=== PATIENT | male | born 1965 | race Caucasian/White ===

== ENCOUNTER 2021-07-18 11:18 | Emergency (ER) | payer BC ==
[~2021-07-18] VITALS: Ht 177.8 cm; Wt 94.3 kg
== END 2021-07-18 12:56 | disposition home or self-care (01) ==
LOC: ER 11:24
DX: R33.9 Retention of urine, unspecified (principal); R31.9 Hematuria, unspecified
CPT/HCPCS: 51700; 99283

== ENCOUNTER → 2024-06-12 | Outpatient (REF) | payer BC ==
[~2024-06-12] MED LIST: IOPAMIDOL 370 MG/ML 100 ML INFUS..BTL INJ ONE; SODIUM CHLORIDE 0.9% 250ML 250 ML ONE
== END ==
LOC: CT 11:49
PROVIDERS: ATTEND Urology
DX: R31.21 Asymptomatic microscopic hematuria (principal)
CPT/HCPCS: 36415; 74178; 82565; 84520; J7050; Q9967

== ENCOUNTER → 2024-07-22 | Day surgery (SDC) | payer BC, OTHER ==
[~2024-07-22] MED LIST changes: +CEFTRIAXONE 1 GM VIAL ONE; +CENTRUM MEN 501 EACH; +FINASTERIDE5 MG PO; +FLOMAX0.4 MG PO; +HYDRALAZINE HCL 20 MG/ML VIAL ONE; -IOPAMIDOL 370 MG/ML 100 ML INFUS..BTL INJ ONE; +MONTELUKAST SOD10 MG PO; +PHENAZOPYRIDINE HCL 100 MG TAB ONE; +RIZATRIPTAN10 M1 PO; -SODIUM CHLORIDE 0.9% 250ML 250 ML ONE; +ZYRTEC10 MG PO
[2024-07-22] MEDS: LACTATED RINGER'S 1,000 ML ONE (09:18)
[2024-07-22 09:23] LABS: BASOPHILS # (AUTO) 0.1 (0.0-0.1); BASOPHILS % 0.4 % (0.0-1.0); EOSINOPHILS # (AUTO) 0.2 (0.0-0.4); HEMATOCRIT 44.2 % (38.2-49.6); HEMOGLOBIN 14.5 g/dL (14.0-18.0); LYMPHOCYTES # (AUTO) 1.8 (1.0-3.2); LYMPHOCYTES % 14.9 % (18.0-39.1); MEAN CORPUSCULAR HEMOGLOBIN 32.3 pg (28-32); MEAN CORPUSCULAR HGB CONC 32.8 g/dL (31-35); MEAN CORPUSCULAR VOLUME 98.4 fL (81-99); MONOCYTES % 8.3 % (4.4-11.3); NEUTROPHILS # (AUTO) 8.9 (2.1-6.9); NEUTROPHILS % 74.1 % (38.7-80.0); PLATELET COUNT 252 x10e3/uL (140-360); RED BLOOD COUNT 4.49 x10e6/uL (4.3-5.7); RED CELL DISTRIBUTION WIDTH 13.2 % (11.7-14.4); WHITE BLOOD COUNT 12.03 x10e3/uL (4.8-10.8)
[2024-07-22 09:54] LABS: ANION GAP 15.8 mmol/L (8-16); CALCIUM 8.9 mg/dL (8.4-10.2); CREATININE, SERUM 1.14 mg/dL (0.72-1.25); POTASSIUM 3.8 mmol/L (3.5-5.1)
[2024-07-22 12:55] VITALS: TEMP 97
[2024-07-22] MEDS: PHENAZOPYRIDINE HCL 100 MG TAB PO ONE ×2 (13:49)
[2024-07-22 14:05] VITALS: BP 138/99; PULSE 76; RESP 18; O2SAT 100
== END | disposition home or self-care (01) ==
LOC: OR 07:20
PROVIDERS: ATTEND Urology
DX: N32.3 Diverticulum of bladder (principal); R31.29 Other microscopic hematuria; N35.911 Unspecified urethral stricture, male, meatal; N40.3 Nodular prostate with lower urinary tract symptoms; R31.0 Gross hematuria; R39.14 Feeling of incomplete bladder emptying; N32.89 Other specified disorders of bladder; I10 Essential (primary) hypertension; Z87.891 Personal history of nicotine dependence; Z01.810 Encounter for preprocedural cardiovascular examination; Z79.899 Other long term (current) drug therapy
CPT/HCPCS: 36415; 52281; 74420; 80048; 85025; 93005; C1758; J0360; J0696; J7121